=== PATIENT | male | born 1985 | race Two or more races ===

== ENCOUNTER 2018-03-27 13:34 | Emergency (ER) | payer OTHER ==
[2018-03-27 14:32] VITALS: TEMP 98; O2SAT 99
--- NOTE | 2018-03-27 15:25 | ED PDOC ---
Arrival/HPI - General Historian: Patient - History of Present Illness Narrative History of Present Illness (Text): 03/27/18 15:20 33M w/ no significant PMH c/o of epigastric abdominal pain. Patient reported pain began yesterday w/o any inciting factors. Describes pain as a constant pressure like sensation which does not change w/ eating. Reports no change in bowel habits, denies n/v/d/c, melena/hematochezia. Denies any urinary discomfort, hematuria. Patient recently had URI for which he was tx w/ azithromycin; URI symtpoms have resolved at this time. Patient does not drink, smoke, or use illegal drugs. <Ernesto Hennessy - Last Filed: 03/27/18 17:31> <Elijah Green - Last Filed: 03/27/18 18:33> - General Chief Complaint: Abdominal Pain Time Seen by Provider: 03/27/18 13:45 Past Medical History - Provider Review Nursing Documentation Reviewed: Yes - Psychiatric Hx Substance Use: No <Ernesto Hennessy - Last Filed: 03/27/18 17:31> - Provider Review Nursing Documentation Reviewed: Yes <Elijah Green - Last Filed: 03/27/18 18:33> Family/Social History - Physician Review Nursing Documentation Reviewed: Yes Family/Social History: No Known Family HX Smoking Status: Never Smoked Hx Alcohol Use: No Hx Substance Use: No <Ernesto Hennessy - Last Filed: 03/27/18 17:31> - Physician Review Nursing Documentation Reviewed: Yes Family/Social History: No Known Family HX <Elijah Green - Last Filed: 03/27/18 18:33> Allergies/Home Meds <Ernesto Hennessy - Last Filed: 03/27/18 17:31> <Elijah Green - Last Filed: 03/27/18 18:33> Allergies/Adverse Reactions: Allergies No Known Allergies Allergy (Verified 03/27/18 14:32) Review of Systems - Physician Review All systems were reviewed & negative as marked: Yes - Review of Systems Constitutional: absent: Fevers, Night Sweats Eyes: Normal ENT: Normal Respiratory: Normal Cardiovascular: Normal Gastrointestinal: Abdominal Pain (Epigastric). absent: Stool Changes, Constipation, Diarrhea, Nausea, Hematochezia, Anorexia, Food Intolerance Genitourinary Male: Normal Musculoskeletal: Normal Skin: Normal Neurological: Normal Endocrine: Normal Hemo/Lymphatic: Normal Psychiatric: Normal <Ernesto Hennessy - Last Filed: 03/27/18 17:31> - Physician Review All systems were reviewed & negative as marked: Yes <Finn Greeno Patt - Last Filed: 03/27/18 18:33> Physical Exam Vital Signs Reviewed: Yes Vital Signs Temp Pulse Resp BP Pulse Ox 03/27/18 14:30 98 F 97 H 18 139/81 99 Temperature: Afebrile Blood Pressure: Normal Pulse: Tachycardic Respiratory Rate: Normal Appearance: Positive for: Well-Appearing, Non-Toxic, Comfortable Pain Distress: None Mental Status: Positive for: Alert and Oriented X 3 - Systems Exam Head: Present: Atraumatic, Normocephalic Pupils: Present: PERRL Mouth: Present: Moist Mucous Membranes Respiratory/Chest: Present: Clear to Auscultation. No: Respiratory Distress Cardiovascular: Present: Normal S1, S2, Tachycardic. No: Murmurs Abdomen: Present: Tenderness (RLQ/ Lower periumbilical; murphys sign negative), Normal Bowel Sounds. No: Rebound, Guarding, McBurney's Point Tender Upper Extremity: Present: Normal Inspection Lower Extremity: Present: Normal Inspection, NORMAL PULSES. No: Edema Neurological: Present: GCS=15, CN II-XII Intact Skin: Present: Warm, Dry Psychiatric: Present: Alert, Oriented x 3, Normal Insight <HennessyAtaErnesto - Last Filed: 03/27/18 17:31> Vital Signs Reviewed: Yes Vital Signs Temp Pulse Resp BP Pulse Ox 03/27/18 14:30 98 F 97 H 18 139/81 99 <Finn Greeno Patt - Last Filed: 03/27/18 18:33> Medical Decision Making ED Course and Treatment: 03/27/18 15:26 CBC/CMP LIPASE/AMYLASE PEPCID 40 PO STAT - Medication Orders Current Medication Orders: Famotidine (Pepcid) 40 mg PO STAT STA Stop: 03/27/18 15:20 <Ata Hennessyant - Last Filed: 03/27/18 17:31> ED Course and Treatment: In agreement with resident note, which includes further HPI details. Patient was seen and evaluated with resident, came up with plan and treatment together. 33 year old male presents complaining of epigastric pain that began yesterday. Plan: -- Labs -- Pepcid -- Reassess and disposition Labs reviewed and normal. On reevaluation, patient felt better. Abdomen soft and NT. ND. He is tolerating PO fluids and food. He was advised on good eating habits. He was advised to f/u with PMD and return to the ED if symptoms worsen or any other concerns. - Lab Interpretations I have reviewed the lab results: Yes - Medication Orders Current Medication Orders: Discontinued Medications Famotidine (Pepcid) 40 mg PO STAT STA Stop: 03/27/18 15:20 <Elijah Green - Last Filed: 03/27/18 18:33> - Scribe Statement The provider has reviewed the documentation as recorded by the Jackieibtimothy Sotomayor Provider Scribe Attestation: All medical record entries made by the Scribe were at my direction and personally dictated by me. I have reviewed the chart and agree that the record accurately reflects my personal performance of the history, physical exam, medical decision making, and the department course for this patient. I have also personally directed, reviewed, and agree with the discharge instructions and disposition. <Elijah Green - Last Filed: 03/27/18 18:33> Disposition/Present on Arrival - Present on Arrival Any Indicators Present on Arrival: No History of DVT/PE: No History of Uncontrolled Diabetes: No Urinary Catheter: No History of Decub. Ulcer: No History Surgical Site Infection Following: None - Disposition Have Diagnosis and Disposition been Completed?: Yes Disposition Time: 16:45 <Ernesto Hennessy - Last Filed: 03/27/18 17:31> <Elijah Green - Last Filed: 03/27/18 18:33> - Disposition Diagnosis: Gastritis Disposition: HOME/ ROUTINE Condition: GOOD Discharge Instructions (ExitCare): Gastritis (DC) Additional Instructions: MELODY BELTRÁN, thank you for letting us take care of you today. Your provider was Elijah Green DO / Ernesto Hennessy DO and you were treated for SEVERE STOMACH PAIN DUE TO GASTRITIS. The emergency medical care you received today was directed at your acute symptoms. If you were prescribed any medication, please fill it and take as directed. It may take several days for your symptoms to resolve. Return to the Emergency Department if your symptoms worsen, do not improve, or if you have any other problems. Please contact your doctor or call one of the physicians/clinics you have been referred to that are listed on the Patient Visit Information form that is included in your discharge packet. Bring any paperwork you were given at discharge with you along with any medications you are taking to your follow up visit. Our treatment cannot replace ongoing medical care by a primary care provider outside of the emergency department. Thank you for allowing the [facility] team to be part of your care today. If you had an X-Ray or CT scan: A Radiologist will review the ED reading if any change in treatment is needed we will contact you. If you had a blood, urine, or wound culture: It will take several days for the results, if any change in treatment is needed we will contact you. If you had an STI test: It will take 48 hours for the results. Please call after 1 week if you have not heard back. Prescriptions: Famotidine [Pepcid] 20 mg PO Q12 #28 tab Referrals: [facility] [Outside] - Follow up with primary Forms: [employer] (Kiswahili)
[2018-03-27 16:27] LABS: BASO # 0.02 K/mm3 (0.0-2.0); BASO % 0.2 % (0.0-3.0); EOS # 0.1 (0.0-0.7); EOS % 0.9 % (1.5-5.0); HEMOGLOBIN 14.4 g/dL (14.0-18.0); LYMPH # 1.4 (1.2-3.4); MEAN CELL VOLUME 82.4 fl (80.0-105.0); MEAN CORPUSCULAR HEMOGLOBIN 27.3 pg (25.0-35.0); MEAN CORPUSCULAR HGB CONC 33.2 g/dl (31.0-37.0); MEAN PLATELET VOLUME 8.8 fl (7.0-11.0); MONO # 0.4 (0.1-0.6); RBC 5.27 10^6/uL (3.5-6.1); RED CELL DISTRIBUTION WIDTH 13.1 % (11.5-14.5); WHITE BLOOD COUNT 8.1 10^3/uL (4.5-11.0)
[2018-03-27 16:39] LABS: ALB/GLOB RATIO 1.4 (1.1-1.8); ALBUMIN 4.9 g/dL (3.0-4.8); ALT/SGPT 22 U/L (7-56); AMYLASE 66 U/L (35-125); AST/SGOT 14 U/L (17-59); BLOOD UREA NITROGEN 20 mg/dL (7-21); CALCIUM 9.1 mg/dL (8.4-10.5); GFR NON-AFRICAN AMERICAN > 60; LIPASE 58 U/L (23-300)
[2018-03-27] MEDS ORDERED: Potassium Chloride 20 mEq ER Tab PO STA (16:44)
[2018-03-27 17:11] VITALS: BP 129/59; PULSE 75; RESP 19
== END 2018-03-27 17:10 | disposition home or self-care (01) ==
LOC: ED 13:34
DX: K29.70 Gastritis, unspecified, without bleeding (principal)